=== PATIENT | male | born 1940 | race Caucasian/White ===

== ENCOUNTER 2016-10-28 03:44 | Inpatient (IN) | payer MEDICARE, OTHER ==
[2016-10-28] VITALS (22 sets, daily range): BP systolic 87–135; BP diastolic 47–81
[~2016-10-28] VITALS: Ht 175.3 cm; Wt 84.1 kg
[2016-10-28] MEDS ORDERED: NS (IVPB) 250 ML ONE (04:17)
[2016-10-28] MEDS ORDERED: EPINEPHrine (OMNICELL DRIP KIT ONLY) 1 MG/ML AMP ONE (04:17)
[2016-10-28] MEDS: EPINEPHrine 1 MG INJECTION 2 MG in NS (IVPB) 248 ML IV SCH ×2 (04:30→08:20)
[2016-10-28 04:33] LABS: BASOPHILS % (AUTO) 0 % (0-10); EOSINOPHILS % (AUTO) 0 % (0-10); LYMPHOCYTES # (AUTO) 5.4 X 10^3 (1.0-4.0); LYMPHOCYTES % (AUTO) 32 % (12-44); MEAN CORPUSCULAR HEMOGLOBIN 30 PG (25-34); MEAN CORPUSCULAR HGB CONC 34 G/DL (32-36); MEAN CORPUSCULAR VOLUME 89 FL (80-99); MEAN PLATELET VOLUME 11.4 FL (7.4-10.4); MONOCYTES # (AUTO) 1.8 X 10^3 (0.0-1.0); MONOCYTES % (AUTO) 11 % (0-12); NEUTROPHILS # (AUTO) 9.5 X 10^3 (1.8-7.8); NEUTROPHILS % (AUTO) 57 % (42-75); PLATELET COUNT 176 10^3/uL (130-400); RED BLOOD COUNT 4.21 10^6/uL (4.35-5.85); RED CELL DISTRIBUTION WIDTH 14.3 % (10.0-14.5); WHITE BLOOD COUNT 16.8 10^3/uL (4.3-11.0)
[2016-10-28] MEDS ORDERED: FUROSEMIDE 40 MG/4 ML INJ (LASIX) ONE (04:33)
[2016-10-28 04:37] LABS: ABG BASE EXCESS -12.3 MMOL/L (-2.5-2.5); ABG OXYGEN SATURATION 88 % (94-100); ABG PCO2 35 MMHG (35-45); ABG PO2 61 MMHG (79-93)
[2016-10-28 04:39] LABS: ABG HCO3 14 MMOL/L (23-27); ABG PH 7.22 (7.37-7.43); ALLENS TEST YES-POS; PATIENT TEMP 98.6
[2016-10-28 04:52] LABS: ALBUMIN 2.7 GM/DL (3.2-4.5); BILIRUBIN,TOTAL 1.4 MG/DL (0.1-1.0); CALCIUM 8.3 MG/DL (8.5-10.1); CREATININE SERUM 2.13 MG/DL (0.60-1.30); MAGNESIUM 1.3 MG/DL (1.8-2.4); POTASSIUM 4.1 MMOL/L (3.6-5.0); TOTAL PROTEIN 5.5 GM/DL (6.4-8.2)
[2016-10-28] MEDS ORDERED: MAGNESIUM 1 GM/100 ML IVPB 400 ML IV ONE (04:54)
[2016-10-28 05:15] LABS: DIGOXIN 0.34 NG/ML (0.80-2.00)
[2016-10-28 05:18] LABS: TROPONIN I 92.85 NG/ML (<0.30)
[2016-10-28] MEDS ORDERED: HEParin 1000 UNIT/ML (10ML VIAL) FOR BOLUS ONE (05:25)
[2016-10-28] MEDS ORDERED: ASPIRIN 325 MG (5 GR) TABLET ONE (05:25)
[2016-10-28] MEDS ORDERED: CLOPIDOGREL 300 MG (PLAVIX) TABLET PO ONE ×2 (05:25→11:30)
[2016-10-28] MEDS ORDERED: HEParin DRIP 25000 UNIT/500ML 500 ML IV ONE (05:26)
[2016-10-28] MEDS ORDERED: ATORVASTATIN 40 MG (LIPITOR) TABLET PO ONE (05:26)
[2016-10-28 05:39] LABS: INR 1.2 (0.8-1.4); PROTHROMBIN TIME PATIENT 14.5 SEC (12.2-14.7)
[2016-10-28] MEDS ORDERED: POTASSIUM CL 10MEQ/50ML IVPB 50 ML IV SCH (06:00)
[2016-10-28] MEDS ORDERED: MAGNESIUM 1 GM/100 ML IVPB 100 ML IV SCH (06:00)
[2016-10-28] MEDS ORDERED: KCL 20 MEQ TAB (K-DUR) PO SCH (06:00)
[2016-10-28] MEDS ORDERED: EPINEPHrine INJECTION 1 MG/ML AMP IV ONE (06:15)
[2016-10-28] MEDS ORDERED: ATROPINE INJECTION 1 MG/10 ML SYR (ABBOTT) IV ONE (06:15)
[2016-10-28] MEDS ORDERED: MAGNESIUM 4 GM/100 ML IVPB 100 ML IV ONE (06:15)
[2016-10-28] MEDS: MAGNESIUM 1 GM/100 ML IVPB 100 ML IV SCH ×3 (06:26→08:08)
[2016-10-28] MEDS ORDERED: FUROSEMIDE 40 MG/4 ML INJ (LASIX) IV ONE (06:30)
[2016-10-28] MEDS ORDERED: HEParin DRIP 25000 UNIT/500ML (ACS THERAPY) IV SCH (06:30)
[2016-10-28] MEDS ORDERED: HEParin 1000 UNIT/ML BOLUS (ACS THERAPY) IV PRN (06:30)
[2016-10-28] MEDS ORDERED: SODIUM BICARB 8.4% 50 MEQ/50 ML (ABBOTT) SYR IV ONE (06:30)
[2016-10-28] MEDS ORDERED: ASPIRIN 325 MG (5 GR) TABLET PO ONE (06:30)
[2016-10-28] MEDS ORDERED: SUCCINYLCHOLINE INJ 100 MG/5 ML SYR ONE (06:50)
[2016-10-28] MEDS ORDERED: SODIUM BICARB 8.4% 50 MEQ/50 ML (ABBOTT) SYR ONE (06:50)
[2016-10-28] MEDS ORDERED: EPINEPHrine INJECTION 1 MG/ML AMP ONE (06:50)
[2016-10-28] MEDS ORDERED: ATROPINE INJECTION 1 MG/10 ML SYR (ABBOTT) ONE (06:50)
[2016-10-28] MEDS ORDERED: MIDAZOLAM 5 MG/5 ML (VERSED) VIAL ONE (06:50)
[2016-10-28] MEDS ORDERED: ROCURONIUM 50 MG/5 ML (ZEMURON) VIAL IV ONE (06:50)
--- NOTE | 2016-10-28 07:23 | Diagnostic Imaging Report ---
INDICATION: Respiratory distress. Baseline FINDINGS: There are rather dense infiltrates demonstrated bilaterally throughout the lungs. The lungs do appear well aerated. The heart is not enlarged. No pleural effusions or evidence of pulmonary edema. There are air bronchograms present on the right. The heart is not enlarged. IMPRESSION: Rather dense consolidated infiltrates bilaterally most likely secondary to pneumonia. Dictated by: Dictated on workstation # [id number]
[2016-10-28] MEDS ORDERED: NS IV 1000 ML 2,500 ML IV PRN (11:00)
[2016-10-28] MEDS ORDERED: inSUlin REGULAR TPN/DRIP ONLY 250 UNITS in NORMAL SALINE 250 ML IV SCH (11:00)
[2016-10-28] MEDS ORDERED: NOREPINEPHRINE 4 MG in D5W 250 ML (IVPB) 250 ML IV SCH (11:00)
[2016-10-28] MEDS ORDERED: 1/2 NS IV SOLUTION 1,000 ML IV SCH (11:00)
[2016-10-28] MEDS ORDERED: PHARMACY TO DOSE IV SCH (11:00)
[2016-10-28] MEDS ORDERED: 1/2 NS W/KCL 20 MEQ/L 1,000 ML IV SCH (11:00)
[2016-10-28] MEDS ORDERED: NS IV 1000 ML 1,000 ML IV PRN (11:00)
[2016-10-28] MEDS ORDERED: NS IV 1000 ML 1,000 ML IV SCH (11:00)
[2016-10-28] MEDS ORDERED: PIPERACILLIN SODIUM/TAZOBACTAM 4.5 GM in NS (IVPB) 100 ML IV NR (11:16)
--- NOTE | 2016-10-28 11:25 | Consultation-Cardiology ---
HPI-Cardiology Cardiology Consultation: Date of Consultation 10/28/16 Date of Admission Attending Physician Svetlana Bianchi DO Admitting Physician Elton Mckeon MD Consulting Physician Dandre MCKEE MD HPI: Time Seen by Provider: 10:20 Chief Complaint: lethargy This is a 75 year old gentleman with diabetes on insulin (non-compliant), atrial fibrillation, COPD. He presented to [facility] with complaints of lethargy, fatigue and cough for atleast the last two days before admission. No fever. History is taken from his . He was lethargic but arousable and would converse and was not unconscious. He was not eating or drinking for the last few days, therefore the brought him to the hospital. Mild shortness of breath, but no chest pain. Denies any sputum, urine difficulty (although decreased urine output was noted). He was noted to be bradycardic and transferred to our hospital electrical system specialist. eICU started epinephrine. Atropine was given which resulted in wide complex tachycardia. when I interviewed him, his heart rate was in the early 60s. Review of Systems-Cardiology Review of Systems Time Seen by Provider: 10:20 Constitutional: As described under HPI, malaise, tiredness Eyes: No As described under HPI, No no symptoms reported, No blindness, No blurred vision, No contact lenses, No drainage, No decreased acuity, No foreign body sensation, No glasses, No inflammation, No pain, No photophobia, No previous injury, No shadows, No tunnel vision, No other, No vision change Ears/Nose/Throat: No As described under HPI, No no symptoms reported, No chronic hearing loss, No epistaxis, No ear discharge, No ear pain, No loose teeth, No mouth pain, No mouth swelling, No nasal drainage, No nose pain, No recent hearing loss, No throat pain, No throat swelling, No ulcerations, No other Respiratory: cough, shortness of breath Cardiovascular: irregular heart rate Gastrointestinal: No no symptoms reported, No As described under HPI, No abdomen distended, No abdominal pain, No blood streaked bowels, No constipation , No diarrhea, No difficulty swallowing, No nausea, poor appetite, poor fluid intake, No rectal bleeding, No vomiting, No other, No nausea/vomiting/diarrhea, No stool coloration changes Genitourinary: no symptoms reported Musculoskeletal: no symptoms reported Skin: no symptoms reported Psychiatric/Neurological: weakness Hematologic: no symptoms reported LJN-Iqjntg-Cdgvft Hx Patient Social History Alcohol Use: Denies Use Recreational Drug Use: No Smoking Status: Former Smoker Recent Foreign Travel: No Recent Infectious Disease Expo: No Hospitalization with Isolation: Denies Physical Abuse Screen: No Sexual Abuse: No Past Medical History PMH As described under Assessment. Allergies and Home Medications Allergies Coded Allergies: iodine (Verified Allergy, Unknown, 10/28/16) Physical Exam-Cardiology Physical Exam Vital Signs/I&O Vital Sign - Last 12Hours 10/28/16 10/28/16 10/28/16 10/28/16 03:45 03:55 04:05 04:10 Pulse 44 44 147 Resp 23 20 22 B/P (MAP) 90/47 107/81 97/64 Pulse Ox 92 88 65 O2 Delivery Non Rebreather Non Rebreather O2 Flow Rate 15.00 15.00 10/28/16 10/28/16 10/28/16 10/28/16 04:15 04:20 04:30 04:51 Pulse 98 103 50 71 Resp 22 24 25 B/P (MAP) 100/47 107/81 Pulse Ox 84 81 99 O2 Delivery Non Rebreather Non Rebreather O2 Flow Rate 15.00 15.00 100.00 10/28/16 10/28/16 10/28/16 10/28/16 05:00 05:55 06:00 06:31 Pulse 71 60 64 Resp 19 17 15 B/P (MAP) 112/62 100/55 Pulse Ox 100 98 98 99 O2 Delivery NIV Bilevel NIV Bilevel NIV Bilevel O2 Flow Rate 100.00 100.00 100.00 FiO2 100 10/28/16 10/28/16 10/28/16 08:09 08:32 11:18 Temp 97.2 Pulse 63 61 Resp 19 13 Pulse Ox 99 99 O2 Flow Rate 80.00 80.00 Capillary Refill : Constitutional: apparent distress HEENT: No PERRL, No normal ENT inspection, No TMs normal, No pharynx normal, No scleral icterus (R), No scleral icterus (L), No pale conjunctivae (R), No pale conjunctivae (L), No photophobia, No TM abnormal (R), No TM abnormal (L), No pharyngeal erythema, No tonsillar exudate, No other, No discharge, No EOMI, No hearing is well preserved, No hard of hearing, No oral hygience is good, No ulceration, No xanthelasmas are seen Neck: No non-tender, No full range of motion, No supple, No normal inspection, No carotid bruit, No limited range of motion, No lymphadenopathy (R), No lymphadenopathy (L), No tender lateral, No tender midline, No thyromegaly, No other, No carotid pulses are 2 + bilaterally, No with good upstrokes Respiratory: respiratory distress, chest expansion is symmetric Cardiovascular: irregularly irregular, S1 and S2 Gastrointestinal: No tender, No soft, No round, No distended, No pulsatile mass , No organomegaly, No guarding, No rebound, No tenderness, No hernia, No mass, No audible bowel sounds, No abnormal bowel sounds, No abdominal bruits, No spleenomegaly, No other Rectal: deferred Extremities: normal range of motion, non-tender, normal inspection, no lower extremity edema bilateral Neurologic/Psychiatric: alert, depressed affect Skin: No normal color, No warm/dry, No cyanosis, No cool, No diaphoresis, No damp, No ecchymosis, No jaundice, No mottled, No pallor, No rash, No tattoos/ piercings, No ulcerations, No rash on exposed areas, No ulcerations on exposed areas, No other Data Review Labs Laboratory Tests 10/28/16 04:29: White Blood Count 16.8H, Red Blood Count 4.21L, Hemoglobin 12.6L, Hematocrit 38L , Mean Corpuscular Volume 89, Mean Corpuscular Hemoglobin 30, Mean Corpuscular Hemoglobin Concent 34, Red Cell Distribution Width 14.3, Platelet Count 176, Mean Platelet Volume 11.4H, Neutrophils (%) (Auto) 57, Lymphocytes (%) (Auto) 32 , Monocytes (%) (Auto) 11, Eosinophils (%) (Auto) 0, Basophils (%) (Auto) 0, Neutrophils # (Auto) 9.5H, Lymphocytes # (Auto) 5.4H, Monocytes # (Auto) 1.8H, Eosinophils # (Auto) 0.0, Basophils # (Auto) 0.0, Prothrombin Time 14.5, INR Comment 1.2, Activated Partial Thromboplast Time 27, Sodium Level 132L, Potassium Level 4.1, Chloride Level 108H, Carbon Dioxide Level 11L, Anion Gap 13 , Blood Urea Nitrogen 39H, Creatinine 2.13H, Estimat Glomerular Filtration Rate 31, BUN/Creatinine Ratio 18, Glucose Level 312H, Lactic Acid Level 2.01*H, Calcium Level 8.3L, Magnesium Level 1.3L, Total Bilirubin 1.4H, Aspartate Amino Transf (AST/SGOT) 475H, Alanine Aminotransferase (ALT/SGPT) 297H, Alkaline Phosphatase 241H, Troponin I 92.85*H, Total Protein 5.5L, Albumin 2.7L, Digoxin Level 0.34L 10/28/16 04:30: Blood Gas Puncture Site LEFT RADIAL, Blood Gas Patient Temperature 98.6, Arterial Blood pH 7.22*L, Arterial Blood Partial Pressure CO2 35, Arterial Blood Partial Pressure O2 61L, Arterial Blood HCO3 14*L, Arterial Blood Total CO2 15.0L, Arterial Blood Oxygen Saturation 88L, Arterial Blood Base Excess - 12.3L, Anselmo Test YES-POS, Blood Gas Ventilator Setting NO, Blood Gas Inspired Oxygen 15L, Glucometer 232H 10/28/16 06:25: Lactic Acid Level 4.38*H 10/28/16 09:50: Activated Partial Thromboplast Time 110H ECG Impression ECG Initial ECG Impression: Atrial Fibrillation w/RVR A/P-Cardiology Assessment/Admission Diagnosis DKA, Metabolic acidosis, Septic shock, Severe pneumonia, NSTEMI, Wide complex tachycardia, Bradycardia/slow AF Plan DKA, Septic shock, Pneumonia, multiorgran failure, CHARISSE, shock liver: fasting sugar 312, HbA1c 15, Bicarb 11, pH 7.22, WBC 17K, lactate 4, CXR shows bilateral consolidations. Systolic BP on vasopressors 100mmhg. Sepsis protocol- IV fluids, Insulin gtt, broad spectrum antibiotics, continue vasopressors ( levophed). blood cultures, urine cx. NSTEMI: likely secondary to the above. Cannot offer invasive strategy till significant resolution of sepsis. medical therapy for now including IV heparin, aspirin, plavix, lipitor. Beta blockers contraindicated secondary to bradycardia , shock. RAY inhibitors to be avoid secondary to shock and CHARISSE. Bradycardia: likely slow AF or junctional. Could be secondary to severe sepsis. continue levophed or epinephrine. Wide complex tachycardia : monomorphic. VT cannot be ruled out. replete lytes , keep K>4, Mg>2. CHARISSE: could be secondary to dehydration - IV fluids. Shock liver: treat septic shock. Prognosis: poor - discussed with Dr Bianchi and patient's . >75 minutes spent taking care of this critical patient. Thank you for your consultation. Please call me if you have any questions. Radha Mckee MD, FACP, FACC, FSCAI, FHRS, CCDS Interventional Cardiology Cardiac Electrophysiology Vascular Medicine and Endovascular Interventions Clinical Quality Measures DVT/VTE Risk/Contraindication: Risk Factor Score Per Nursin RFS Level Per Nursing on Admit: 4+=Very High Dandre MCKEE MD Oct 28, 2016 11:25 am
--- NOTE | 2016-10-28 11:27 | History & Physical-Hospitalist ---
HPI History of Present Illness: HPI/Chief Complaint CC: Bradycardia This is a 75yoWM that was accepted in direct admit from [facility] due to severe bradycardia and elevated troponin that was transferred from Dr Beckham for Cardiology care. He arrived at 3:30pm and EICU was consulted. As time progressed while in ICU he was found to be hypotensive and acidotic and findings c/w pneumonia bilaterally requiring biPAP and DKA due to non- compliance with insulin for many months and HGA1C of 15. 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 Patient has told the nurse that he wants to be allowed to if it has come to that and she wants him to proceed on with aggressive treatment. He has elevated troponin of 92 currently and evidence of multi-system organ failure with creatinine of 2.1 and elevated liver enzymes. I have updated his on the poor prognosis overall of this patient and considering the ARF issue we will need to transfer to higher level of care. In the meantime he has been placed on septic shock protocol and insulin drip for presumed DKA and will be supported in any way possible but prognosis is extremely poor at this current time. Source: patient, family Exam Limitations: clinical condition (critical illness) Date Seen 10/28/16 Time Seen by Provider: 10:45 Attending Physician Svetlana Bianchi Emmett J MD Referring Physician Date of Admission Oct 28, 2016 at 03:44 Home Medications & Allergies Home Medications Reviewed patient Home Medication Reconciliation Form Allergies Allergies Coded Allergies iodine (Verified Allergy, Unknown, 10/28/16) Past Fenlwxd-Bxxwrg-Ahymrj Hx Patient Social History Marrital Status: Employed/Student: retired Alcohol Use: Denies Use Recreational Drug Use: No Smoking Status: Former Smoker Physical Abuse Screen: No Sexual Abuse: No Recent Foreign Travel: No Contact w/other who traveled: No Recent Hopitalizations: Yes (transferred from [facility]) Recent Infectious Disease Expo: No Seasonal Allergies Seasonal Allergies: No Respiratory Hx Respiratory Disorders: Yes Respiratory Disorders: COPD, Pneumonia Cardiovascular Hx Cardiovascular Disorders: Yes Cardiac Disorders: Atrial Fibrillation, High Cholesterol, Hypertension Neurological Hx Neurological Disorders: No Genitourinary Hx Genitourinary Disorders: No Gastrointestinal Hx Gastrointestinal Disorders: No Musculoskeletal Hx Musculoskeletal Disorders: No Endocrine Hx Endocrine Disorders: Yes Endocrine Disorders: Diabetes, Insulin dep HEENT HX ENT Disorders: Yes HEENT Disorders: Cataract Cancer Hx Cancer: No Cancer: Skin Psychosocial Hx Psychiatric Problems: No Blood Transfusions Adverse Reaction to a Blood Tr: No Family Medical History Significant Family History: No Pertinent Family Hx Review of Systems Constitutional: see HPI, dizziness, malaise, weakness EENTM: no symptoms reported Respiratory: cough Cardiovascular: no symptoms reported Gastrointestinal: nausea Genitourinary: decreased output Musculoskeletal: back pain Skin: no symptoms reported Psychiatric/Neurological: Depressed All Other Systems Reviewed Negative Unless Noted: Yes Physical Exam Physical Exam Vital Signs Vital Sign - Last 12Hours 10/28/16 10/28/16 10/28/16 10/28/16 10/28/16 03:45 03:55 04:05 05:55 08:09 Temp 97.2 Pulse 44 Resp 23 B/P (MAP) 90/47 Pulse Ox 92 O2 Delivery Non Rebreather O2 Flow Rate 15.00 FiO2 100 Capillary Refill : General Appearance: No Apparent Distress, WD/WN, Chronically ill, Other ( acutely ill) Eyes: Bilateral Eye Normal Inspection, Bilateral Eye PERRL HEENT: PERRL/EOMI, Normal ENT Inspection, Pharynx Normal Neck: Full Range of Motion, Normal Inspection, Non Tender, Supple, Carotid Bruit Respiratory: Chest Non Tender, No Accessory Muscle Use, No Respiratory Distress , Crackles, Decreased Breath Sounds, Other (on bipap) Cardiovascular: Regular Rate, Rhythm, No Edema, No Gallop, No JVD, No Murmur, Normal Peripheral Pulses Gastrointestinal: Normal Bowel Sounds, No Organomegaly, No Pulsatile Mass, Non Tender, Soft Back: Normal Inspection, No CVA Tenderness, No Vertebral Tenderness Extremity: Normal Capillary Refill, Normal Inspection, Normal Range of Motion, Non Tender, No Calf Tenderness, No Pedal Edema Neurologic/Psychiatric: Alert, Oriented x3, No Motor/Sensory Deficits, Normal Mood/Affect Skin: Normal Color, Warm/Dry Lymphatic: No Adenopathy Results Results/Procedures Lab Laboratory Tests 10/28/16 04:29 Assessment/Plan Admission Diagnosis Assessment: Septic shock with multi-system organ failure DKA NSTEMI with troponin of 92 ARF creat risen to 2.1 Bilateral pneumonia Liver shock with elevated liver enzymes COPD Non-compliance with DM meds and insulin for the past several months Assessment and Plan Plan: DKA protocol and insulin drip Septic shock protocol Transfer to higher level of care due to rising creatinine and needs real estate acquisition analyst care Aggressive IVF Monitor closely Poor prognosis but will support him in any way possible to help survival. Heparin drip Clinical Quality Measures DVT/VTE Risk/Contraindication: Risk Factor Score Per Nursin RFS Level Per Nursing on Admit: 4+=Very High SVETLANA BIANCHI DO Oct 28, 2016 11:27
--- NOTE | 2016-10-28 11:38 | Diagnostic Imaging Report ---
Indication: Pneumonia. Comparison with 10/28/2016 at 4:34 a.m. FINDINGS: There has been improved aeration with decreasing consolidation especially in the left lung. There continues to be moderate consolidated infiltrate in the right lower lobe. Probable small bilateral pleural effusions. Heart is not enlarged. No evidence of pulmonary edema. IMPRESSION: 1. Significant decrease in infiltrate especially on the left. 2. Moderate residual consolidated infiltrate in right lower lung. Dictated by: Dictated on workstation # [id number]
[2016-10-28 11:39] LABS: BASOPHILS % (AUTO) 0 % (0-10); EOSINOPHILS % (AUTO) 0 % (0-10); LYMPHOCYTES % (AUTO) 6 % (12-44); MEAN CORPUSCULAR HEMOGLOBIN 30 PG (25-34); MEAN CORPUSCULAR HGB CONC 33 G/DL (32-36); MEAN CORPUSCULAR VOLUME 90 FL (80-99); MEAN PLATELET VOLUME 11.2 FL (7.4-10.4); MONOCYTES # (AUTO) 1.8 X 10^3 (0.0-1.0); MONOCYTES % (AUTO) 10 % (0-12); NEUTROPHILS # (AUTO) 14.7 X 10^3 (1.8-7.8); NEUTROPHILS % (AUTO) 84 % (42-75); PLATELET COUNT 205 10^3/uL (130-400); RED BLOOD COUNT 4.03 10^6/uL (4.35-5.85); RED CELL DISTRIBUTION WIDTH 14.4 % (10.0-14.5); WHITE BLOOD COUNT 17.5 10^3/uL (4.3-11.0)
[2016-10-28 11:55] LABS: INR 1.4 (0.8-1.4); PROTHROMBIN TIME PATIENT 17.3 SEC (12.2-14.7)
[2016-10-28 12:00] LABS: ALBUMIN 2.6 GM/DL (3.2-4.5); BAND NEUTROPHILS 5 %; BILIRUBIN,TOTAL 1.6 MG/DL (0.1-1.0); CREATININE SERUM 2.47 MG/DL (0.60-1.30); LYMPHOCYTES % (MANUAL) 3 %; NEUTROPHILS % (MANUAL) 84 %; POTASSIUM 4.8 MMOL/L (3.6-5.0); TOTAL PROTEIN 5.3 GM/DL (6.4-8.2)
[2016-10-28] MEDS ORDERED: LEVOFLOXACIN 750 MG/150 ML IV 150 ML IV SCH (12:00)
[2016-10-28 12:20] LABS: ABG OXYGEN SATURATION 95 % (94-100); ABG PCO2 27 MMHG (35-45); ABG PO2 86 MMHG (79-93); ABG TCO2 10.5 MMOL/L (21.0-31.0)
[2016-10-28 12:21] LABS: ABG HCO3 10 MMOL/L (23-27); ABG PH 7.19 (7.37-7.43); ALLENS TEST YES-POS; PATIENT TEMP 98.3
[2016-10-28] MEDS ORDERED: PROPOFOL DRIP (ICU) 100 ML IV ONE (12:42)
--- NOTE | 2016-10-28 13:18 | Anesthesia-Procedure Note ---
Procedure Start/Stop Time Date of Procedure: Oct 28, 2016 Start Time: 11:50 Stop Time: 12:00 Procedures/Interventions RSI: Yes 100% pre-Ox, [id number]: Yes Intubation Method: orotracheal Videoscope used: Yes (Glidescpe 3) Medications: Propofol (150), Rocuronium (50), Succinylcholine (100), Versed Mask Ventilation: positive Positive End Tide CO2: Yes Breath Sounds after Intubation: bilateral-equal ETT Securred @ (cm): 23 Intubated with ease: Yes Intubation Complications: no complications Post Intubation Xray-done: Yes Post Procedure Patient intubated with ease, no desaturation. Care to DELINQUENCY PREVENTION SOCIAL WORKER. Care turned over to: DELINQUENCY PREVENTION SOCIAL WORKER FAISAL SALEEM CRNA Oct 28, 2016 13:18
[2016-10-28] MEDS ORDERED: PIPERACILLIN SODIUM/TAZOBACTAM 4.5 GM in NS (IVPB) 100 ML IV SCH (18:00)
--- OUTSIDE RECORDS SUMMARY | 2016-10-31 04:08 | XMS REPORT | Continuity of Care Document ---
Author Author [facility] Organization [facility] Address Unknown Phone Unavailable Care Team Providers Care Computer Compositor Name Role Phone PCP Unavailable Source Comments Some departments are not documenting in the electronic medical record. If you do not see the information that you expected, contact Release of Information in the Health Information Management department at [phone] for further assistance in locating additional records.[facility] Active Allergies and Adverse Reactions Allergen Noted Date Severity Reactions Comments Iodine 08/12/2014 Medium HIVES Current Medications Prescription Sig. Disp. Refills Start End Date Status Date lisinopril (PRINIVIL, Take 40 mg by mouth Active ZESTRIL) 40 mg tablet daily. aspirin EC 81 mg tablet Take 81 mg by mouth Active daily. magnesium oxide (MAG-OX) Take 400 mg by mouth Active 400 mg tablet daily. Garlic 1,000 mg cap Take by mouth. Active DOCOSAHEXANOIC ACID/EPA Take by mouth. Active (FISH OIL PO) gabapentin (NEURONTIN) Take 300 mg by mouth Active 300 mg capsule three times daily. naproxen (NAPROSYN) 500 Take 500 mg by mouth Active mg tablet twice daily with meals. metformin-ER(+) Take 1,000 mg by mouth Active (FORTAMET) 1,000 mg twice daily. tablet acyclovir (ZOVIRAX) 800 Take 800 mg by mouth Active mg tablet twice daily. INSULIN ASPART (NOVOLOG Inject into area(s) as Active SC) directed. simvastatin (ZOCOR) 80 mg Take 80 mg by mouth at Active tablet bedtime daily. INSULIN DETEMIR (LEVEMIR Inject into area(s) as Active SC) directed. tamsulosin (FLOMAX) 0.4 Take 0.4 mg by mouth Active mg capsule daily. Active Problems Problem Noted Date Pseudophakia of both eyes 08/12/2014 Last Assessment & Plan: observe at this time DME (diabetic macular edema) both eyes 08/12/2014 Last Assessment & Plan: extensive DME noted [facility] YUDELKA without significant response Will start IVL 0.3 in [facility] Sev nonprolf db retinoph 08/12/2014 Last Assessment & Plan: Discussed results of ETDRS and DRS studies. Discussed blood glucose, blood pressure, and serum cholesterol control. Encouraged starting an exercise program and weight loss. Strict HBA1c control discussed. Social History Tobacco Use Types Packs/Day Years Used Date Former Smoker Alcohol Use Drinks/Week oz/Week Comments Yes occasionally beer Last Filed Vital Signs Vital Sign Reading Time Taken Blood Pressure - - Pulse - - Temperature - - Respiratory Rate - - Height 1.78 m (5' 10.08") 08/12/2014 2:01 PM CDT Weight 80.015 kg (176 lb 6.4 oz) 08/12/2014 2:01 PM CDT Body Mass Index 25.25 08/12/2014 2:01 PM CDT Oxygen Saturation - - Plan of Care Health Maintenance Due Date Last Done Comments Physical (Comprehensive) 1947 Exam Pertussis Vaccine 1952 Tetanus Vaccine 1958 Colorectal Cancer 12/31/1991 Screening Shingles Vaccine 2001 Abdominal Aortic Aneurysm 2006 Screening Prevnar/Pneumovax (#1) 2006 Influenza Vaccine 12/29/2016 Results from Last 3 Months Not on file
== END 2016-10-28 15:05 | disposition short-term general hospital (02) | DRG 871 ==
LOC: ICU 03:44
PROVIDERS: ADMIT Internal Medicine; ATTEND Internal Medicine
DX: A41.9 Sepsis, unspecified organism (principal); R65.21 Severe sepsis with septic shock; E13.10 Other specified diabetes mellitus with ketoacidosis without coma; I21.4 Non-ST elevation (NSTEMI) myocardial infarction; N17.9 Acute kidney failure, unspecified; J18.9 Pneumonia, unspecified organism; K72.00 Acute and subacute hepatic failure without coma; J44.9 Chronic obstructive pulmonary disease, unspecified; Z91.14 Patient's other noncompliance with medication regimen; I48.91 Unspecified atrial fibrillation; Z87.891 Personal history of nicotine dependence; R00.1 Bradycardia, unspecified; R00.0 Tachycardia, unspecified
CPT/HCPCS: 36415; 71010; 80053; 80162; 82805; 82962; 83605; 83735; 83880; 84484; 85007; 85025; 85027; 85610; 85730; 87040; 87070; 87205; 94002; 94660